=== PATIENT | female | born 1995 | race Caucasian/White ===

== ENCOUNTER 2024-08-19 09:35 | Inpatient (IN) | payer OTHER ==
[2024-08-19] MEDS ORDERED: Ibuprofen 800 MG TAB PO PRN (09:51)
[2024-08-19] MEDS ORDERED: Lidocaine 1% (PF) 30 ML VIAL SC PRN (09:51)
[2024-08-19] MEDS ORDERED: hydrALAZINE 20 MG/ML VIAL SLOW IVP PRN ×2 (09:51→20:36)
[2024-08-19] MEDS ORDERED: Ondansetron PF 4 MG/2 ML Vial IVP PRN ×3 (09:51→20:36)
[2024-08-19] MEDS ORDERED: fentaNYL 50 mcg/mL 1 mL Vial SLOW IVP PRN (09:51)
[2024-08-19] MEDS ORDERED: Promethazine HCl 25 MG/ML VIAL IM PRN ×2 (09:51→13:20)
[2024-08-19] MEDS ORDERED: HYDROcodone/Acetaminophen 5/325 mg Tablet PO PRN ×4 (09:51→20:36)
[2024-08-19] MEDS ORDERED: Oxytocin 30 units/NS 500 ML 500 ML IV SCH ×2 (10:00→20:36)
[2024-08-19 10:21] VITALS: BMI 30.2
[2024-08-19] MEDS: Lactated Ringer's 1,000 ML IV SCH (11:00)
[2024-08-19 11:20] LABS: Hematocrit 35.4 % (34.9-44.5); Hemoglobin 12.2 g/dL (12.0-15.5); Mean Corpuscular HGB CONC 34.5 g/dL (32.0-36.0); Mean Corpuscular Hemoglobin 30.7 pg (27.0-33.0); Mean Corpuscular Volume 89.2 fL (81.6-98.3); Mean Platelet Volume 10.7 fL (7.4-10.4); Platelet Count 263 10x3/uL (150-450); RBC Distribution Width 13.1 % (11.5-14.5); Red Blood Cell (RBC) Count 3.97 10x6/uL (3.90-5.03)
[2024-08-19] MEDS: fentaNYL/Ropivacaine Epidural 100 ML ONE (11:48)
[2024-08-19 11:53] LABS: Syphilis Antibody Nonreactive (Nonreactive); Syphilis Antibody Index 0.05 S/CO (<1.00 Non-Reactive)
[2024-08-19 11:55] LABS: HBsAg Index 0.17 S/CO (0-0.99); Hep B Surf Ag - L&D Non-Reactive S/CO (NonReactive)
[2024-08-19] MEDS: Oxytocin 30 units/NS 500 ML 500 ML IV SCH (12:24)
[2024-08-19] MEDS ORDERED: Naloxone HCl 0.4 mg/ml Vial IVP PRN ×2 (13:20)
[2024-08-19] MEDS ORDERED: Acetaminophen 325 MG TAB PO PRN (13:20)
[2024-08-19] MEDS ORDERED: ePHEDrine Sulfate 50 MG/10 ML VIAL SLOW IVP PRN (13:20)
[2024-08-19] MEDS ORDERED: Moisturizing Cream (Eucerin) 113 GM JAR TOP PRN (13:20)
[2024-08-19] MEDS ORDERED: diphenhydrAMINE 50 MG/ML VIAL IVP PRN (13:20)
[2024-08-19] MEDS ORDERED: Lactated Ringer's 500 ML IV PRN (13:20)
[2024-08-19] MEDS ORDERED: fentaNYL 2 mcg/Ropivacaine 0.2% Epidural 100 ML CADD EPIDURAL SCH (13:30)
[2024-08-19] MEDS ORDERED: Communication Order-Pharmacy FS SCH (13:30)
[2024-08-19] MEDS ORDERED: Milk Of Magnesia 30 ML UDCUP PO PRN (20:36)
[2024-08-19] MEDS ORDERED: diphenhydrAMINE 25 MG CAP PO PRN (20:36)
[2024-08-19] MEDS ORDERED: Preparation H Ointment 28 GM TUBE PR PRN (20:36)
[2024-08-19] MEDS ORDERED: Lanolin Ointment 7 GM TUBE TOP PRN (20:36)
[2024-08-19] MEDS ORDERED: Bisacodyl 10 MG SUPP PR PRN (20:36)
[2024-08-19] MEDS: Ibuprofen 800 MG TAB PO SCH (21:08)
[2024-08-19] MEDS: Docusate 100 MG CAP PO SCH (21:09)
[2024-08-19] MEDS: Boostrix 0.5 ML (Tdap) VIAL (>/=7 yrs of age) IM ONE (21:09)
[2024-08-20] MEDS: Benzocaine-Menthol 82.5 ML CAN TOP PRN (05:55)
[2024-08-20] MEDS: Ferrous Sulfate 325 MG TAB PO SCH (08:13)
[2024-08-20] MEDS: Prenatal Vitamin 1 TAB PO SCH (08:13)
[2024-08-20] MEDS ORDERED: Bupivacaine 0.25% HCL 30 ML VIAL ONE (09:00)
[2024-08-21 11:37] VITALS: BP 113/63; TEMP 98.2
== END 2024-08-21 13:30 | disposition home or self-care (01) | DRG 807 ==
LOC: CSHLD/OP 09:35 → CSHLD 10:42 → CSHPP 20:00
PROVIDERS: ADMIT Obstetrics & Gynecology; ATTEND Obstetrics & Gynecology
PROC: 10E0XZZ Delivery of Products of Conception, External Approach (ICD-10-PCS; principal; 2024-08-19)
PROC: 0KQM0ZZ Repair Perineum Muscle, Open Approach (ICD-10-PCS; 2024-08-19)
PROC: 3E0S3BZ Introduction of Anesthetic Agent into Epidural Space, Percutaneous Approach (ICD-10-PCS; 2024-08-19)
DX: O70.1 Second degree perineal laceration during delivery (principal); Z37.0 Single live birth; Z3A.38 38 weeks gestation of pregnancy
CPT/HCPCS: 36415; 51702; 85027; 86780; 86850; 86900; 86901; 87340; 99285; J0665; J2590; J7120